=== PATIENT | female | born 1950 | race Caucasian/White ===

== ENCOUNTER 2018-07-16 13:54 | Emergency (ER) | payer MEDICARE ==
[~2018-07-16] VITALS: Ht 165.1 cm; Wt 87.3 kg
[2018-07-16] MEDS ORDERED: LEVOTHYROXIN125 MCG PO (14:20)
[2018-07-16] MEDS ORDERED: SIMVASTATIN20 MG PO (14:20)
[2018-07-16] MEDS ORDERED: LISINOPRIL10 MG PO (14:20)
[2018-07-16] MEDS ORDERED: ZANTAC300 MG PO (14:21)
[2018-07-16] MEDS ORDERED: VERAPAMIL120 M1 PO (14:21)
[2018-07-16] MEDS ORDERED: ALL DAY ALLG10 MG PO (14:22)
[2018-07-16 14:53] LABS: URINE BILIRUBIN - DIPSTICK NEGATIVE (NEGATIVE); URINE BLOOD DIPSTICK TRACE-INTACT (NEGATIVE); URINE COLOR YELLOW; URINE GLUCOSE - DIPSTICK NEGATIVE (NEGATIVE); URINE KETONE NEGATIVE (NEGATIVE); URINE LEUK ESTERASE NEGATIVE (NEGATIVE); URINE NITRITE - DIPSTICK NEGATIVE (Negative); URINE PH 5.5 (4.5-8.0); URINE PROTEIN - DIPSTICK NEGATIVE (NEG-TRACE); URINE SPECIFIC GRAVITY <=1.005; URINE UROBILINOGEN - DIPSTICK 0.2 E.U./dL (0.2)
[2018-07-16] MEDS ORDERED: MEDDOSEPAK PO (15:23)
[2018-07-16] MEDS ORDERED: FLEXERIL PO (15:23)
[2018-07-16] MEDS ORDERED: DICLOFENAC50 MG PO (15:23)
[2018-07-16 15:30] VITALS: BP 131/80
== END 2018-07-16 15:30 | disposition home or self-care (01) ==
LOC: ED 13:54
PROVIDERS: Emergency Medicine
DX: S39.012A Strain of muscle, fascia and tendon of lower back, initial encounter (principal); R50.9 Fever, unspecified